=== PATIENT | male | born 1980 | race Caucasian/White ===

== ENCOUNTER 2018-01-06 14:02 | Inpatient (IN) | payer OTHER ==
[2018-01-06] MEDS ORDERED: Nicotine Inhaler* 10 MG AMP INH PRN (14:15)
[2018-01-06] MEDS ORDERED: Mouth Piece, Nicotine* 1 EACH CARTRIDGE INH PRN (14:15)
[2018-01-06 14:32] LABS: ABS Basophils 0 10^3/ul (0-0.2); ABS Eosinophils 0.1 10^3/ul (0-0.6); ABS Lymphocytes 1.5 10^3/ul (1.0-4.8); ABS Monocytes 0.7 10^3/ul (0-0.8); ABS Neutrophils 6.3 10^3/ul (1.5-7.7); ABS Nucleated RBC 0 10^3/ul; Hematocrit 43 % (42-52); Hemoglobin 14.6 g/dl (14.0-18.0); Lymphocyte % 17.2 % (25-47); Mean Corpuscular HGB Conc 34 g/dl (31-36); Mean Corpuscular Hemoglobin 30 pg (27-31); Mean Corpuscular Volume 87 fL (80-94); Nucleated Red Blood Cells % 0; Platelet Count 207 10^3/ul (150-450); Red Blood Count 4.92 10^6/ul (4.00-5.40); Red Cell Distribution Width 14 % (10.5-15); White Blood Count 8.6 10^3/ul (3.5-10.8)
--- NOTE | 2018-01-06 14:34 | ED ---
Psychiatric Complaint - HPI Summary HPI Summary: The patient is a 37 y/o M presenting to [facility] with a chief complaint of anxiety and depression attacks since being discharged from the [facility] three days ago. He had been admitted there for four days, but he thinks that he was released too soon. His medications were changed, which he thinks was not appropriate because he is now experiencing worsened episodes of depression. He also has been having left-sided abd pain currently rated 8/10 in severity, which may be due to his dx of ulcerative colitis, which he had to stop taking his medication for when he was admitted to [facility]. He is currently having SI, and he has body aches and sinus pressure. Current nicotine patch user, but was former smoker before being admitted. Nondrinker. - History Of Current Complaint Chief Complaint: EDMentalHealth Time Seen by Provider: 01/06/18 14:15 Hx Obtained From: Patient Onset/Duration: Gradual Onset, Lasting Days - last three days, Still Present Timing: Days Severity Initially: Mild Severity Currently: Moderate Character: Depressed, Anxious Aggravating Factor(s): Other - change in medications Alleviating Factor(s): Nothing Related History: Positive For: Prior Psychiatric Issues - anxiety, depression Has Suicidal: Reports: Thoughts - Allergies/Home Medications Allergies/Adverse Reactions: Allergies Allergy/AdvReac Type Severity Reaction Status Date / Time latex Allergy Rash Verified 01/06/18 15:00 Sulfa (Sulfonamide Allergy Rash Verified 01/06/18 15:00 Antibiotics) PMH/Surg Hx/FS Hx/Imm Hx Endocrine/Hematology History: Denies: Hx Diabetes Cardiovascular History: Denies: Hx Hypertension GI History: Reports: Other GI Disorders - ulcerative colitis Psychiatric History: Reports: Hx Anxiety, Hx Depression - Surgical History Surgery Procedure, Year, and Place: none Infectious Disease History: No Infectious Disease History: Denies: Traveled Outside the [place] in Last 30 Days - Family History Known Family History: Negative: Diabetes - Social History Alcohol Use: None Substance Use Type: Reports: None Smoking Status (MU): Former Smoker Review of Systems Positive: Other - body aches Positive: Other - sinus pressure Positive: Abdominal Pain - left side Positive: Anxious, Depressed, Other - SI All Other Systems Reviewed And Are Negative: Yes Physical Exam - Summary Physical Exam Summary: Appearance: Well appearing, no pain distress, depressed affect Skin: warm, dry, reflects adequate perfusion Head/face: normal Eyes: EOMI, ISABELA ENT: normal Neck: supple, non-tender Respiratory: CTA, breath sounds present Cardiovascular: RRR, pulses symmetrical Abdomen: non-tender, soft Bowel: present Musculoskeletal: normal, strength/ROM intact Neuro: normal, sensory motor intact, A&Ox3 Triage Information Reviewed: Yes Vital Signs On Initial Exam: Initial Vitals Temp Pulse Resp BP Pulse Ox 98.4 F 87 16 143/89 100 01/06/18 14:04 01/06/18 14:04 01/06/18 14:04 01/06/18 14:04 01/06/18 14:04 Vital Signs Reviewed: Yes Diagnostics - Vital Signs Vital Signs Temp Pulse Resp BP Pulse Ox 01/06/18 14:04 98.4 F 87 16 143/89 100 - Laboratory Result Diagrams: 01/06/18 14:19 01/06/18 14:19 Lab Statement: Any lab studies that have been ordered have been reviewed, and results considered in the medical decision making process. Course/Dx - Course Course Of Treatment: The patient is a 37 y/o M presenting to [facility] with a chief complaint of anxiety and depression episodes with associated SI for the last three days since being released from the [facility]. His medications were changed, and he was unable to have his ulcerative colitis medication, which may be causing his current abd pain. Upon exam, the patient has a depressed affect. In the ED course, the patient was given nicotine inhaler and mouth piece. Blood work and UA obtained. Al Short, mental health server support technician, accepts the patient for admission at [1715] with dx of unspecified depression. Patient understands the need for admission and agrees with this plan. - Differential Dx/Clinical Impression Differential Diagnosis/HQI/PQRI: Positive: Anxiety, Depression, Suicidal Ideation Provider Diagnosis: Depression, Suicidal ideation - Physician Notifications Discussed Care Of Patient With: Al Short - mental health server support technician Time Discussed With Above Provider: 17:15 Instructed by Provider To: Admit As Inpatient Discharge - Sign-Out/Discharge Documenting (check all that apply): Patient Departure - Patient will be admitted to [facility] for further care. - Discharge Plan Condition: Stable Disposition: ADMITTED TO [facility] Referrals: No Primary Care Phys,NOPCP [Primary Care Provider] - - Billing Disposition and Condition Condition: STABLE Disposition: Admitted to [facility] - Attestation Statements Document Initiated by Realibe: Yes Documenting Scribe: Radha Leone Provider For Whom Matt is Documenting (Include Credential): Dr. Alexi Butterfield MD Scribe Attestation: Radha Talamantes, scribed for Dr. Alexi Butterfield MD on 01/06/18 at 1731. Scribe Documentation Reviewed: Yes Provider Attestation: The documentation as recorded by the Radha coles accurately reflects the service I personally performed and the decisions made by me, Dr. Alexi Butterfield MD
[2018-01-06 14:52] LABS: Urine Appearance Clear; Urine Blood 1+ (Negative); Urine Color Straw; Urine Ketones Negative (Negative); Urine Protein Negative (Negative); Urine Red Blood Cell Trace(0-2/hpf) (Absent); Urine Specific Gravity 1.009 (1.010-1.030); Urine Urobilinogen Negative (Negative); Urine White Blood Cell Trace(0-5/hpf) (Absent)
[2018-01-06 14:58] LABS: EGFR Non-African American 79.5 (>60)
[2018-01-06] MEDS ORDERED: Acetaminophen TAB* 325 MG PO ONE ×2 (16:20→16:40)
[2018-01-06] MEDS ORDERED: Al Hydrox/Mg Hydrox/Simet LIQ* 30 ML UDC PO PRN (20:26)
[2018-01-06] MEDS ORDERED: [UNRECOGNIZED DRUG - OTHER] PO PRN (20:57)
[2018-01-06] MEDS ORDERED: QUEtiapine TAB* 100 MG PO SCH (21:00)
[2018-01-06] MEDS ORDERED: MUCINEX DM PO PRN (21:03)
[2018-01-06] MEDS: Amoxicillin/Clavulanate TAB* 875 MG PO SCH (22:08)
[2018-01-06] MEDS: busPIRone TAB* 15 MG PO SCH (22:08)
[2018-01-06] MEDS: Omeprazole CAP* 20 MG PO SCH (22:09)
[2018-01-06] MEDS: Montelukast Sodium TAB* 10 MG PO SCH (22:09)
[2018-01-06] MEDS: Acetaminophen TAB* 325 MG PO PRN (22:10)
[2018-01-06] MEDS: Ondansetron TAB* 4 MG PO PRN (22:11)
[2018-01-06] MEDS: hydrOXYzine HCL TAB* 50 MG PO PRN (22:11)
[2018-01-06] MEDS: Albuterol HFA INHALER* 8 gm MDI INH PRN (22:13)
[2018-01-06] MEDS: Triamcinolone 0.025% OINT * 15 GM TUBE TOPICAL SCH (22:14)
[2018-01-06] MEDS: Nicotine Patch Removal NOTE PATCH OFF SCH (22:17)
[2018-01-06] MEDS: Albuterol 2.5 MG/3 ML NEB.SOL* (0.083%) INH SCH (22:26)
[2018-01-07] MEDS ORDERED: FLUoxetine CAP* 20 MG ONE (06:16)
[2018-01-07] MEDS: busPIRone TAB* 15 MG PO SCH ×3 (07:05→20:50)
[2018-01-07] MEDS: FLUoxetine CAP* 20 MG PO SCH (07:05)
[2018-01-07] MEDS: Albuterol 2.5 MG/3 ML NEB.SOL* (0.083%) INH SCH ×3 (08:10→20:32)
[2018-01-07] MEDS: Nicotine PATCH 21 MG/24 HR* PATCH TRANSDERM SCH (08:21)
[2018-01-07] MEDS: Dicyclomine CAP* 10 MG PO SCH ×3 (08:22→16:33)
[2018-01-07] MEDS: Amoxicillin/Clavulanate TAB* 875 MG PO SCH ×2 (08:22→20:50)
[2018-01-07] MEDS: Omeprazole CAP* 20 MG PO SCH ×2 (08:23→20:52)
[2018-01-07] MEDS: Fluticasone NASAL SPRAY 50MCG* 16 gm SPRAY BTL BOTH NARES SCH (08:23)
[2018-01-07] MEDS: Triamcinolone 0.025% OINT * 15 GM TUBE TOPICAL SCH ×2 (08:23→20:55)
[2018-01-07] MEDS: Vitamin THERAPEUTIC TAB PO SCH (08:23)
[2018-01-07] MEDS: PTO:Mesalamine (NF) 0.375 GM CAP PO SCH (08:24)
[2018-01-07] MEDS: BUDESONIDE 3 MG PO SCH (08:24)
[2018-01-07] MEDS: hydrOXYzine HCL TAB* 50 MG PO PRN (08:28)
[2018-01-07] MEDS: Acetaminophen TAB* 325 MG PO PRN ×3 (10:16→20:53)
[2018-01-07] MEDS: Ondansetron TAB* 4 MG PO PRN (10:17)
[2018-01-07] MEDS: LORazepam TAB(*) 0.5 MG PO SCH ×3 (12:13→20:51)
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
[2018-01-07] MEDS: Montelukast Sodium TAB* 10 MG PO SCH (20:51)
[2018-01-07] MEDS: Albuterol HFA INHALER* 8 gm MDI INH PRN (20:56)
[2018-01-07] MEDS ORDERED: QUEtiapine TAB* 100 MG PO SCH (21:00)
[2018-01-07] MEDS ORDERED: Prazosin CAP* 1 MG PO SCH (21:00)
[2018-01-07] MEDS: Nicotine Patch Removal NOTE PATCH OFF SCH (23:05)
[2018-01-08] MEDS: hydrOXYzine HCL TAB* 50 MG PO PRN ×2 (01:48→12:00)
[2018-01-08] MEDS: Dicyclomine CAP* 10 MG PO SCH ×3 (07:58→17:18)
[2018-01-08] MEDS: Fluticasone NASAL SPRAY 50MCG* 16 gm SPRAY BTL BOTH NARES SCH (07:59)
[2018-01-08] MEDS: Omeprazole CAP* 20 MG PO SCH ×2 (07:59→20:43)
[2018-01-08] MEDS: FLUoxetine CAP* 20 MG PO SCH (07:59)
[2018-01-08] MEDS: BUDESONIDE 3 MG PO SCH (07:59)
[2018-01-08] MEDS: Triamcinolone 0.025% OINT * 15 GM TUBE TOPICAL SCH ×2 (07:59→20:43)
[2018-01-08] MEDS: Nicotine PATCH 21 MG/24 HR* PATCH TRANSDERM SCH (07:59)
[2018-01-08] MEDS: busPIRone TAB* 15 MG PO SCH ×3 (07:59→20:43)
[2018-01-08] MEDS: LORazepam TAB(*) 0.5 MG PO SCH ×3 (07:59→20:43)
[2018-01-08] MEDS: Acetaminophen TAB* 325 MG PO PRN ×2 (07:59→20:54)
[2018-01-08] MEDS: Vitamin THERAPEUTIC TAB PO SCH (07:59)
[2018-01-08] MEDS: PTO:Mesalamine (NF) 0.375 GM CAP PO SCH (07:59)
[2018-01-08] MEDS: Ondansetron TAB* 4 MG PO PRN ×2 (08:42→17:18)
[2018-01-08] MEDS: Albuterol 2.5 MG/3 ML NEB.SOL* (0.083%) INH SCH ×3 (09:34→20:34)
--- NOTE | 2018-01-08 11:46 | PN ---
Subjective - Subjective Date of Service: 01/08/18 Service Type: 95026 [facility] care 15 min low complexity Subjective: Patient was seen by self, discussed with treatment team, chart was reviewed. Patient has been compliant with his medications but reported no improvement in his sleep last night. Instead reported that he had worsening of his dream and had early, middle and late insomnia.. Patient reports that he slept with nicotine patch yesterday. no reported side effects. Patient reports minimal improvement in anxiety and depression but appears to be doing better than yesterday and more social and invested in attending groups and learning coping strategies to manage suicidal thoughts and distress. Patient eating has been fair. Patient has been cooperative with staff. Patient behavior has been in control. Patient has made multiple request if he an use candies from home and protein shakes that he use on a daily basis. to help dryness of mouth and help with his weight due to long standing IBS and Ulcerative Colitis compliants. Patient mood was less anxious and less dysphoric and reports improvement in suicidal thoughts. Patient has been reporting no homicidal ideation. No psychotic symptoms of delusions or hallucinations. Objective - Appearance Appearance: Healthy Appearing Dysmorphic Features: No Hygiene: Normal Grooming: Fairly Well Kept - Behavior Psychomotor Activities: Normal Exhibits Abnormal Movement: No - Attitude and Relatedness Attitude and Relatedness: Cooperative Eye Contact: Fair - Speech Quality: Unpressured Latencies: Normal Quantity: Appropriate - Mood Patient's Decription of Mood: "Anxious" - Affect Observed Affect: Tense - less - Thought Process Patient's Thought Process: Goal Directed, Circumstantial Thought Content: No Passive Wish, No Suicidal Planning, No Homicidal Ideation, No Paranoid Ideation - Sensorium Experiencing Hallucinations: No, Sensorium is Clear Type of Hallucinations: Visual: No, Auditory: No, Command: No - Level of Consciousness Level of Consciousness: Alert Orientation: Yes Intact, Yes Orientated to Time, Yes Orientated to Place, Yes Orientated to Person - Impulse Control Impulse Control: Intact - Insight and Judgement Insight and Judgement: Fair - Group Participation Particating in Group Activities: Yes - Medication Management Medication Management Adherence: Yes Assessment - Assessment Merits Inpatient Hospitalization: For Immediate Safety, For Stabilization, For Discharge Planning Inpatient DSM-V Dx: F33.9 Clinical Impression: Patient with history of IBS, Ulcerative Colitis, PTSD, Anxiety and Depression? ADHD-can be attention deficit secondary to primary diagnosis. Patient currently admitted due to worsening of depression, anxiety and suicidal thoughts with a plan. Patient has also struggled with psychosocial issues including financial, conflicts with partner and recent changes in medications. Patient is a danger to self and if discharged hence will be stabilized on inpatient unit with medication adjustments and therapy. MHU: Problem List - Patient Problems (1) Major depression Current Visit: Yes Status: Acute Code(s): F32.9 - MAJOR DEPRESSIVE DISORDER , SINGLE EPISODE, UNSPECIFIED SNOMED Code(s): 001093588 (2) Anxiety disorder, unspecified Current Visit: Yes Status: Acute Code(s): F41.9 - ANXIETY DISORDER, UNSPECIFIED SNOMED Code(s): 076412234 (3) PTSD (post-traumatic stress disorder) Current Visit: Yes Status: Acute Code(s): F43.10 - POST-TRAUMATIC STRESS DISORDER, UNSPECIFIED SNOMED Code(s): 79999424 Plan - Plan Treatment Plan: Name: ANN CHAUHAN Birthdate: 1980 [id number] - Patient continues to be hospitalized due to recent suicidal thoughts with plan , mood instability, anxiety and impulsivity. - Patient's medications were adjusted after informed consent with continuation of Buspar and Prozac. Patient Prazosin was discontinued at this time and Seroquel was increased to 150 mg at Bedtime to augment antidepressant and anti anxiety effect and aide sleep. Continue with other medical medications. -Patient was ordered to have his request of protein shake and candy, will also obtain nutrition consult for appropriate nutritional advice and recommendation. - Patient will be monitored for improvement and side effects. Risk and benefits were discussed. - Patient was encouraged to continue his participation in the milieu, group and individual therapy. Medications: Current Medications Acetaminophen (Tylenol Tab*) 650 mg PO Q4H PRN PRN Reason: PAIN or TEMP > 101 F Last Admin: 01/08/18 07:59 Dose: 650 mg Al Hydrox/Mg Hydrox/Simethicone (Maalox Plus*) 30 ml PO Q4H PRN PRN Reason: INDIGESTION Albuterol (Ventolin Hfa Inhaler*) 2 puff INH Q4H PRN PRN Reason: . Last Admin: 01/07/18 20:56 Dose: 2 puff Albuterol (Ventolin 2.5 Mg/3 Ml Neb.Ania*) 2.5 mg INH TID JIGAR Last Admin: 01/08/18 09:34 Dose: 2.5 mg Budesonide (Budesonide Cap(Nf)) 9 mg PO DAILY COUNTS INCLUDE 234 BEDS AT THE [facility] Last Admin: 01/08/18 07:59 Dose: 9 mg Buspirone HCl (Buspar Tab *) 15 mg PO TID COUNTS INCLUDE 234 BEDS AT THE [facility] Last Admin: 01/08/18 07:59 Dose: 15 mg Device (Nicotine Mouth Piece*) 1 each INH .USE WITH NICOTROL PRN PRN Reason: CRAVING Dicyclomine HCl (Bentyl Cap*) 20 mg PO TID [facility] Last Admin: 01/08/18 07:58 Dose: 20 mg Fluoxetine HCl (Prozac Cap*) 40 mg PO DAILY COUNTS INCLUDE 234 BEDS AT THE [facility] Last Admin: 01/08/18 07:59 Dose: 40 mg Fluticasone Propionate (Flonase Nasal Eagle 50mcg*) 1 spray BOTH NARES DAILY COUNTS INCLUDE 234 BEDS AT THE [facility] Last Admin: 01/08/18 07:59 Dose: 1 spray Hydroxyzine HCl (Atarax Tab*) 50 mg PO Q6H PRN PRN Reason: ANXIETY Last Admin: 01/08/18 01:48 Dose: 50 mg Lorazepam (Ativan Tab(*)) 0.5 mg PO TID COUNTS INCLUDE 234 BEDS AT THE [facility] Last Admin: 01/08/18 07:59 Dose: 0.5 mg Mesalamine (Apriso (Nf)) 1.5 gm PO DAILY COUNTS INCLUDE 234 BEDS AT THE [facility] Last Admin: 01/08/18 07:59 Dose: 1.5 gm Montelukast Sodium (Singulair Tab*) 10 mg PO BEDTIME COUNTS INCLUDE 234 BEDS AT THE [facility] Last Admin: 01/07/18 20:51 Dose: 10 mg Multivitamins (Theragran Tab*) 1 tab PO DAILY COUNTS INCLUDE 234 BEDS AT THE [facility] Last Admin: 01/08/18 07:59 Dose: 1 tab Nicotine (Nicotine Inhaler*) 10 mg INH Q2H PRN PRN Reason: CRAVING Nicotine (Nicotine Patch 21 Mg/24 Hr*) 1 patch TRANSDERM DAILY COUNTS INCLUDE 234 BEDS AT THE [facility] Last Admin: 01/08/18 07:59 Dose: 1 patch Nf:Bronkaid 1 dose PO Q4H PRN PRN Reason: . Nf: Mucinex Dm 1 dose PO Q12H PRN PRN Reason: FOR 10 DAYS Stop: 01/14/18 23:59 Omeprazole (Prilosec Cap*) 20 mg PO BID COUNTS INCLUDE 234 BEDS AT THE [facility] Last Admin: 01/08/18 07:59 Dose: 20 mg Ondansetron HCl (Zofran Tab*) 4 mg PO Q8H PRN PRN Reason: NAUSEA Last Admin: 01/08/18 08:42 Dose: 4 mg Pharmacy Profile Note (Nicotine Patch Removal Note*) 1 note PATCH OFF 2099 COUNTS INCLUDE 234 BEDS AT THE [facility] Last Admin: 01/07/18 23:05 Dose: Not Given Quetiapine Fumarate (Seroquel Tab*) 150 mg PO 2100 JIGAR Triamcinolone Acetonide (Triamcinolone 0.025% Oint *) 1 applic TOPICAL BID COUNTS INCLUDE 234 BEDS AT THE [facility] Last Admin: 01/08/18 07:59 Dose: 1 applic
[2018-01-08] MEDS: Montelukast Sodium TAB* 10 MG PO SCH (20:43)
[2018-01-08] MEDS: Nicotine Patch Removal NOTE PATCH OFF SCH (20:45)
[2018-01-08] MEDS: Albuterol HFA INHALER* 8 gm MDI INH PRN (20:46)
[2018-01-08] MEDS ORDERED: QUEtiapine TAB* 100 MG PO SCH (21:00)
[2018-01-09] MEDS: hydrOXYzine HCL TAB* 50 MG PO PRN (03:23)
[2018-01-09] MEDS: Fluticasone NASAL SPRAY 50MCG* 16 gm SPRAY BTL BOTH NARES SCH (08:18)
[2018-01-09] MEDS: Nicotine PATCH 21 MG/24 HR* PATCH TRANSDERM SCH (08:18)
[2018-01-09] MEDS: FLUoxetine CAP* 20 MG PO SCH (08:19)
[2018-01-09] MEDS: busPIRone TAB* 15 MG PO SCH ×2 (08:19→13:52)
[2018-01-09] MEDS: BUDESONIDE 3 MG PO SCH (08:19)
[2018-01-09] MEDS: Dicyclomine CAP* 10 MG PO SCH ×3 (08:19→16:44)
[2018-01-09] MEDS: Omeprazole CAP* 20 MG PO SCH (08:19)
[2018-01-09] MEDS: Vitamin THERAPEUTIC TAB PO SCH (08:19)
[2018-01-09] MEDS: LORazepam TAB(*) 0.5 MG PO SCH ×2 (08:19→13:53)
[2018-01-09] MEDS: PTO:Mesalamine (NF) 0.375 GM CAP PO SCH (08:20)
[2018-01-09] MEDS: Triamcinolone 0.025% OINT * 15 GM TUBE TOPICAL SCH (08:23)
[2018-01-09] MEDS: Albuterol 2.5 MG/3 ML NEB.SOL* (0.083%) INH SCH ×3 (08:32→20:20)
[2018-01-09] MEDS: Acetaminophen TAB* 325 MG PO PRN ×2 (09:53→16:43)
[2018-01-09] MEDS: Ondansetron TAB* 4 MG PO PRN (09:53)
--- NOTE | 2018-01-09 11:31 | PN ---
MHU: Group Therapy Note - Service Type Service Type: 16149 Group Psychotherapy - Cognitive Behavioral Group Therapy ( CBT):Patient was attentive and participatory in CBT programming this morning, and remained in good behavioral control. Patient expressed positive insights regarding relevant treatment interventions and goals.
--- NOTE | 2018-01-09 14:48 | PN ---
Subjective - Subjective Date of Service: 01/09/18 Service Type: [id number] [facility] care 15 min low complexity Subjective: Patient was seen by self, discussed with treatment team, chart was reviewed. Patient has been compliant with his medications. Patient reported some improvement in his depression and anxiety. Patient reports that he took out nicotine patch last night before going to bed. Patient reports that he continued to have difficulty with insomnia. Patient also reported nightmares and inability to fall back in to sleep. Patient had to take Hydroxyzine with some benefits. Patient continues to work on his distress and negative cognitive thinking with coping strategies. Patient is attending groups and feels that it has been helpful. Patient reports that his goal for today is to not complain and have been doing good with that and appreciating help that he is getting at the hospital. Patient eating has been fair. Patient has been cooperative with staff. Patient behavior has been in control. Patient has been reporting no suicidal or homicidal ideation. No psychotic symptoms of delusions or hallucinations. Patient do report generalized discomfort in abdomen and reports mucous and bloody diarrhea due to his chronic Ulcerative colitis and IBS. Objective - Appearance Appearance: Healthy Appearing Dysmorphic Features: No Hygiene: Normal Grooming: Fairly Well Kept - Behavior Psychomotor Activities: Normal Exhibits Abnormal Movement: No - Attitude and Relatedness Attitude and Relatedness: Cooperative Eye Contact: Fair - Speech Quality: Unpressured Latencies: Normal Quantity: Appropriate - Mood Patient's Decription of Mood: "better" - Affect Observed Affect: Tense - less Affect Consistent with: Dysphoria - less - Thought Process Patient's Thought Process: Coherent, Circumstantial Thought Content: No Passive Wish, No Suicidal Planning, No Homicidal Ideation, No Paranoid Ideation - Sensorium Experiencing Hallucinations: No, Sensorium is Clear Type of Hallucinations: Visual: No, Auditory: No, Command: No - Level of Consciousness Level of Consciousness: Alert Orientation: Yes Intact, Yes Orientated to Time, Yes Orientated to Place, Yes Orientated to Person - Impulse Control Impulse Control: Intact - Insight and Judgement Insight and Judgement: Fair - Group Participation Particating in Group Activities: Yes - Medication Management Medication Management Adherence: Yes Assessment - Assessment Merits Inpatient Hospitalization: For Immediate Safety, For Stabilization, For Discharge Planning Inpatient DSM-V Dx: F33.9 Clinical Impression: Patient with history of IBS, Ulcerative Colitis, PTSD, Anxiety and Depression? ADHD-can be attention deficit secondary to primary diagnosis. Patient currently admitted due to worsening of depression, anxiety and suicidal thoughts with a plan. Patient has also struggled with psychosocial issues including financial, conflicts with partner and recent changes in medications. Patient is a danger to self and if discharged hence will be stabilized on inpatient unit with medication adjustments and therapy. MHU: Problem List - Patient Problems (1) Major depression Current Visit: Yes Status: Acute Code(s): F32.9 - MAJOR DEPRESSIVE DISORDER , SINGLE EPISODE, UNSPECIFIED SNOMED Code(s): 379471066 (2) Anxiety disorder, unspecified Current Visit: Yes Status: Acute Code(s): F41.9 - ANXIETY DISORDER, UNSPECIFIED SNOMED Code(s): 446632382 (3) PTSD (post-traumatic stress disorder) Current Visit: Yes Status: Acute Code(s): F43.10 - POST-TRAUMATIC STRESS DISORDER, UNSPECIFIED SNOMED Code(s): 46850219 Plan - Plan Treatment Plan: Name: ANN CHAUHAN Birthdate: 1980 [id number] - Patient continues to be hospitalized due to recent suicidal thoughts with plan , mood instability, anxiety and impulsivity. - Patient's medications were adjusted after informed consent with continuation of Buspar and Prozac. Patient Seroquel was increased to 200 mg at Bedtime to augment antidepressant and anti anxiety effect and aide sleep. Ativan was changed to prn. Continue with other medical medications. -Called Hospitalist for a consult regarding patient's GI complaint. - Patient will be monitored for improvement and side effects. Risk and benefits were discussed. - Patient was encouraged to continue his participation in the milieu, group and individual therapy. Medications: Current Medications Acetaminophen (Tylenol Tab*) 650 mg PO Q4H PRN PRN Reason: PAIN or TEMP > 101 F Last Admin: 01/09/18 09:53 Dose: 650 mg Al Hydrox/Mg Hydrox/Simethicone (Maalox Plus*) 30 ml PO Q4H PRN PRN Reason: INDIGESTION Albuterol (Ventolin Hfa Inhaler*) 2 puff INH Q4H PRN PRN Reason: . Last Admin: 01/08/18 20:46 Dose: 2 puff Albuterol (Ventolin 2.5 Mg/3 Ml Neb.Ania*) 2.5 mg INH TID JIGAR Last Admin: 01/09/18 14:21 Dose: 2.5 mg Budesonide (Budesonide Cap(Nf)) 9 mg PO DAILY [facility] Last Admin: 01/09/18 08:19 Dose: 9 mg Buspirone HCl (Buspar Tab *) 15 mg PO TID [facility] Last Admin: 01/09/18 13:52 Dose: 15 mg Device (Nicotine Mouth Piece*) 1 each INH .USE WITH NICOTROL PRN PRN Reason: CRAVING Dicyclomine HCl (Bentyl Cap*) 20 mg PO TID AC [facility] Last Admin: 01/09/18 11:54 Dose: 20 mg Fluoxetine HCl (Prozac Cap*) 40 mg PO DAILY [facility] Last Admin: 01/09/18 08:19 Dose: 40 mg Fluticasone Propionate (Flonase Nasal [place] 50mcg*) 1 spray BOTH NARES DAILY [facility] Last Admin: 01/09/18 08:18 Dose: 1 spray Hydroxyzine HCl (Atarax Tab*) 50 mg PO Q6H PRN PRN Reason: ANXIETY Last Admin: 01/09/18 03:23 Dose: 50 mg Lorazepam (Ativan Tab(*)) 0.5 mg PO TID PRN PRN Reason: ANXIETY Mesalamine (Apriso (Nf)) 1.5 gm PO DAILY [facility] Last Admin: 01/09/18 08:20 Dose: 1.5 gm Montelukast Sodium (Singulair Tab*) 10 mg PO BEDTIME [facility] Last Admin: 01/08/18 20:43 Dose: 10 mg Multivitamins (Theragran Tab*) 1 tab PO DAILY [facility] Last Admin: 01/09/18 08:19 Dose: 1 tab Nicotine (Nicotine Inhaler*) 10 mg INH Q2H PRN PRN Reason: CRAVING Nicotine (Nicotine Patch 21 Mg/24 Hr*) 1 patch TRANSDERM DAILY [facility] Last Admin: 01/09/18 08:18 Dose: 1 patch Nf:Bronkaid 1 dose PO Q4H PRN PRN Reason: . Nf: Mucinex Dm 1 dose PO Q12H PRN PRN Reason: FOR 10 DAYS Stop: 01/14/18 23:59 Omeprazole (Prilosec Cap*) 20 mg PO BID [facility] Last Admin: 01/09/18 08:19 Dose: 20 mg Ondansetron HCl (Zofran Tab*) 4 mg PO Q8H PRN PRN Reason: NAUSEA Last Admin: 01/09/18 09:53 Dose: 4 mg Pharmacy Profile Note (Nicotine Patch Removal Note*) 1 note PATCH OFF 2099 [facility] Last Admin: 01/08/18 20:45 Dose: 1 note Quetiapine Fumarate (Seroquel Tab*) 200 mg PO 2100 [facility] Triamcinolone Acetonide (Triamcinolone 0.025% Oint *) 1 applic TOPICAL BID [facility] Last Admin: 01/09/18 08:23 Dose: Not Given
--- NOTE | 2018-01-09 16:09 | PN ---
MHU: Group Therapy Note - Service Type Service Type: [id number] Group Psychotherapy - Group Participation Patient Participating in Group: Yes Level of Group Participation: Attentive, Spontaneously Participate Relatedness to Group: Well Related - Hossein was very participatory and appreciative of the information offered. He was pleasant and attentive.
[2018-01-09] MEDS: LORazepam TAB(*) 0.5 MG PO PRN ×2 (16:45→22:31)
[2018-01-09] MEDS: Nicotine Patch Removal NOTE PATCH OFF SCH (22:28)
[2018-01-10] MEDS ORDERED: Iohexol 300* (CONTRAST) 10 ML SDV IV ONE (00:28)
[2018-01-10] MEDS: busPIRone TAB* 15 MG PO SCH ×4 (00:45→21:14)
[2018-01-10] MEDS: QUEtiapine TAB* 100 MG PO SCH ×2 (00:45→21:14)
[2018-01-10] MEDS: Omeprazole CAP* 20 MG PO SCH ×3 (00:45→21:14)
[2018-01-10] MEDS: Montelukast Sodium TAB* 10 MG PO SCH ×2 (00:45→21:14)
[2018-01-10] MEDS: Triamcinolone 0.025% OINT * 15 GM TUBE TOPICAL SCH ×3 (00:46→21:11)
[2018-01-10] MEDS: Acetaminophen TAB* 325 MG PO PRN ×4 (00:47→22:41)
--- NOTE | 2018-01-10 01:30 | RAD ---
EXAM: CT Abdomen and Pelvis With Intravenous Contrast EXAM DATE/TIME: 01/10/2018 12:33 AM CLINICAL HISTORY: 37 years old, male; Pain; Abdominal pain; Generalized; Prior surgery; Surgery date: 6+ months; Surgery type: RT inguinal hernia repair w/ mesh; Additional info: Abd pain, diarrhea, HX of uc TECHNIQUE: Axial computed tomography images of the abdomen and pelvis with intravenous contrast. All CT scans at this facility use at least one of these dose optimization techniques: automated exposure control; mA and/or kV adjustment per patient size (includes targeted exams where dose is matched to clinical indication); or iterative reconstruction. Coronal and sagittal reformatted images were created and reviewed. CONTRAST: 79 ml of OMNI 300 administered intravenously. COMPARISON: No relevant prior studies available. FINDINGS: Lower thorax: There is a 3 mm nodule in the right lower lobe on axial image #2, series 2. ABDOMEN: Liver: The liver is enlarged measuring 20.5 cm in length. Gallbladder and bile ducts: Normal. No calcified stones. No ductal dilation. Pancreas: Normal. No ductal dilation. Spleen: The spleen is enlarged measuring 15 cm in length. Adrenals: Normal. No mass. Kidneys and ureters: Normal. No hydronephrosis. Stomach and bowel: Normal. No obstruction. No mucosal thickening. Appendix: No evidence of appendicitis. PELVIS: Bladder: The bladder is not distended and evaluation is limited but no gross bladder pathology is identified. Reproductive: Unremarkable as visualized. ABDOMEN and PELVIS: Intraperitoneal space: Normal. No free air. No significant fluid collection. Bones/joints: No acute fracture. No dislocation. Soft tissues: Minimal soft tissue changes are seen in the right groin area from previous inguinal hernia repair surgery. Vasculature: The splenic vein is prominent in size. Lymph nodes: Normal. No enlarged lymph nodes. IMPRESSION: 1. Hepatosplenomegaly. 2. Prominent splenic vein, raising the possibility of portal hypertension. 3. Right lower lobe pulmonary nodule. To contact [facility] with a general question: [facility] - [phone] For direct physician to physician contact: Physician Hotline - [phone] [facility] ([facility] Facility ID #[id number])
--- NOTE | 2018-01-10 03:35 | CONS ---
HOSPITAL MEDICINE CONSULTATION: DATE OF CONSULT: 01/09/18 PRIMARY CARE PROVIDER: None. REQUESTING PHYSICIAN IN CONSULT: Dr. Cam Diaz. ATTENDING PHYSICIAN: Dr. Chaya Garces (dictated by Miriam Olmedo NP). REASON FOR CONSULT: Abdominal pain and diarrhea. HISTORY OF PRESENT ILLNESS: I will refer you to Dr. Diaz's history and physical from 01/07/18 for complete details, but in short, Mr. Herman is a 37- year-old male with past medical history of ulcerative colitis, IBS, PTSD, anxiety, depression, who was admitted to the behavioral services unit for suicidal ideations. The patient notes that previous to being hospitalized here , he was hospitalized at [facility] in the mental health unit. He was not aware at that time, though at discharge he was made aware that his ulcerative colitis medications had been held throughout his hospitalization. He is not sure exactly how long he has been off his medications, though he believes it has been up to 3 weeks. He has been back on his medications while here at [facility], though he has had significant abdominal pain and diarrhea , which have gotten much worse in the last 5 days. He reports abdominal pain, which wraps around to his back. He describes the pain as sharp and constant. He has diarrhea, which consists of blood and mucus. He does have nausea and occasional emesis. He reports that he has had an episode before of fecal retention and this feels similar. He reports his last UC flare was over a year ago. He has had no significant issues since then. He has had a poor appetite associated with this pain and has been trying to eat 6 small meals per day mostly clear and full liquids. He does see a bailiff at [place] and has yearly colonoscopies. He believes his next colonoscopy will be in January or February. PAST MEDICAL HISTORY: 1. Ulcerative colitis. 2. IBS. 3. PTSD. 4. Anxiety. 5. Depression. PAST SURGICAL HISTORY: None. HOME MEDICATIONS: I do not have a complete list of home medications, though based on his account, he is taking for his ulcerative colitis: 1. Dicyclomine 20 mg p.o. t.i.d. 2. Mesalamine 1.5 g p.o. daily. 3. Pantoprazole 40 mg p.o. daily. I will defer to the psychiatrist's H and P for his psychiatric medications. ALLERGIES: LATEX and SULFA. FAMILY HISTORY: Significant for IBS. He reports his mom and his sister both have IBS. SOCIAL HISTORY: He has a 16-pack year smoking history. He quit approximately 1 - 1/2 weeks ago. Denies recreational drug use. Reports very occasional alcohol use. REVIEW OF SYSTEMS: An 11-point review of systems was performed and all the pertinent positive and negative findings are in the HPI. All other systems are negative. PHYSICAL EXAM: General: Mr. Herman is a well-developed, well-nourished, middle - aged male, sitting in bed, in no acute distress. He appears his stated age. Vital Signs: Temp 98.5, heart rate 80, respiratory rate 16, oxygen saturation 97% on room air, blood pressure 131/83. HEENT: Head is atraumatic, normocephalic. Visual eldridge are grossly intact. Oral mucous membranes are moist and without lesions. Respiratory: Symmetrical chest expansion. No chest wall deformities. Lungs: Clear to auscultation throughout. No rhonchi, wheezes, or rales. Cardiovascular: Regular rate and rhythm. S1, S2 present. No murmurs, rubs, or gallops. No JVD. Musculoskeletal: Full range of motion. No pain or deformities. Abdomen: Soft, significantly tender to palpation throughout, nondistended. Bowel sounds are normoactive throughout. No bruits appreciated. No hepatosplenomegaly. Neuro: Awake, alert, and oriented x4. Moves all extremities. Steady gait with no impairment. Skin: Grossly intact without lesions. LABORATORY DATA: Labs from 01/06/18 show WBC 18.6, RBC 4.92, hemoglobin 14.6, hematocrit 43, platelets 207. Sodium 142, potassium 4.0, chloride 105, carbon dioxide 29, BUN 14, creatinine 1.06, glucose 98. Urinalysis unremarkable. Urine toxicology positive for amphetamines. ASSESSMENT AND PLAN: Mr. Herman is a 37-year-old male with past medical history of ulcerative colitis, irritable bowel syndrome, posttraumatic stress disorder, depression and anxiety, who has been a patient of the mental health unit here at [facility] since 01/07/18 and has had significant abdominal pain and diarrhea since admission. The hospitalist service has been asked to consult and recommendations are as follows: 1. Ulcerative colitis and irritable bowel syndrome. The patient's symptoms are likely due in part to being off his medications for a significant period of time. It is really unclear how long he was off his medications, though this is certainly a cause for this current exacerbation. He should continue his dicyclomine, mesalamine, and omeprazole. We have ordered a CBC, BMP, CRP, and ESR. I have ordered a CT of the abdomen and pelvis with IV contrast. Ideally, we would also have oral contrast, though the patient does not think he will tolerate that. I do not think that he is currently infected as he does not have a temperature, he did not have an elevated white count on his last labs, and his vital signs have been stable. Further management will be determined after the CT scan is obtained. 2. Posttraumatic stress disorder, anxiety, and depression. Continue per Psychiatry. 3. Code status. The patient is a full code. TIME SPENT: Approximately 45 minutes was spent on this consultation, greater than half of that time spent with the patient obtaining my history, performing my physical exam, and reviewing the plan of care. This case has been reviewed with my attending, Dr. Garces, who is in agreement with the plan of care. MIRIAM OLMEDO NP [id number]/[facility] #: [id number] CRISTEL
[2018-01-10] MEDS: hydrOXYzine HCL TAB* 50 MG PO PRN ×2 (06:17→11:55)
[2018-01-10] MEDS: PTO:Mesalamine (NF) 0.375 GM CAP PO SCH (08:01)
[2018-01-10] MEDS: Dicyclomine CAP* 10 MG PO SCH ×4 (08:01→21:12)
[2018-01-10] MEDS: BUDESONIDE 3 MG PO SCH (08:01)
[2018-01-10] MEDS: Vitamin THERAPEUTIC TAB PO SCH (08:01)
[2018-01-10] MEDS: FLUoxetine CAP* 20 MG PO SCH (08:01)
[2018-01-10] MEDS: Fluticasone NASAL SPRAY 50MCG* 16 gm SPRAY BTL BOTH NARES SCH (08:02)
[2018-01-10] MEDS: Nicotine PATCH 21 MG/24 HR* PATCH TRANSDERM SCH (08:04)
[2018-01-10] MEDS: Albuterol HFA INHALER* 8 gm MDI INH PRN (08:04)
[2018-01-10 08:29] LABS: EGFR Non-African American 97.3 (>60)
[2018-01-10 08:31] LABS: INR 0.94 (0.77-1.02)
[2018-01-10 08:44] LABS: ABS Basophils 0 10^3/ul (0-0.2); ABS Eosinophils 0.2 10^3/ul (0-0.6); ABS Lymphocytes 2.7 10^3/ul (1.0-4.8); ABS Monocytes 0.6 10^3/ul (0-0.8); ABS Neutrophils 1.9 10^3/ul (1.5-7.7); ABS Nucleated RBC 0 10^3/ul; Eosinophil % 3.4 % (0-6); Hematocrit 39 % (42-52); Hemoglobin 13.4 g/dl (14.0-18.0); Lymphocyte % 50.2 % (25-47); Mean Corpuscular HGB Conc 35 g/dl (31-36); Mean Corpuscular Hemoglobin 30 pg (27-31); Mean Corpuscular Volume 86 fL (80-94); Mean Platelet Volume 7.9 um3 (7.4-10.4); Nucleated Red Blood Cells % 0.1; Platelet Count 194 10^3/ul (150-450); Red Cell Distribution Width 14 % (10.5-15); White Blood Count 5.4 10^3/ul (3.5-10.8)
[2018-01-10] MEDS: Ondansetron TAB* 4 MG PO PRN (09:24)
[2018-01-10] MEDS: LORazepam TAB(*) 0.5 MG PO PRN ×3 (09:26→22:41)
[2018-01-10] MEDS: Albuterol 2.5 MG/3 ML NEB.SOL* (0.083%) INH SCH (10:00)
--- NOTE | 2018-01-10 14:01 | PN ---
Subjective Date of Service: 01/10/18 Interval History: Patient has persistent cramping abdominal pain wrapping around to patient's back. Patient states that he usually has abdominal pain/IBS symptoms that manifest with stress. Patient continues to have frequent bloody diarrhea and nausea which improves slightly with zofran. Patient has mild improvement in pain with benytl and tylenol but still has significant pain. Patient denies F/C , CP, SOB, dizziness, palpitations, or other pain. Family History: Unchanged from Admission Social History: Unchanged from Admission Past Medical History: Unchanged from Admission Objective Active Medications: Acetaminophen (Tylenol Tab*) 650 mg PO Q4H PRN PRN Reason: PAIN or TEMP > 101 F Last Admin: 01/10/18 09:24 Dose: 650 mg Al Hydrox/Mg Hydrox/Simethicone (Maalox Plus*) 30 ml PO Q4H PRN PRN Reason: INDIGESTION Albuterol (Ventolin Hfa Inhaler*) 2 puff INH Q4H PRN PRN Reason: . Last Admin: 01/10/18 08:04 Dose: 2 puff Budesonide (Budesonide Cap(Nf)) 9 mg PO DAILY [facility] Last Admin: 01/10/18 08:01 Dose: 9 mg Buspirone HCl (Buspar Tab *) 15 mg PO TID [facility] Last Admin: 01/10/18 08:01 Dose: 15 mg Device (Nicotine Mouth Piece*) 1 each INH .USE WITH NICOTROL PRN PRN Reason: CRAVING Dicyclomine HCl (Bentyl Cap*) 40 mg PO ACHS [facility] Fluoxetine HCl (Prozac Cap*) 40 mg PO DAILY [facility] Last Admin: 01/10/18 08:01 Dose: 40 mg Fluticasone Propionate (Flonase Nasal [place] 50mcg*) 1 spray BOTH NARES DAILY [facility] Last Admin: 01/10/18 08:02 Dose: 1 spray Hydroxyzine HCl (Atarax Tab*) 50 mg PO Q6H PRN PRN Reason: ANXIETY Last Admin: 01/10/18 11:55 Dose: 50 mg Lorazepam (Ativan Tab(*)) 0.5 mg PO TID PRN PRN Reason: ANXIETY Last Admin: 01/10/18 09:26 Dose: 0.5 mg Mesalamine (Pentasa(Nf)) 1,000 mg PO QID [facility]; Protocol Montelukast Sodium (Singulair Tab*) 10 mg PO BEDTIME [facility] Last Admin: 01/10/18 00:45 Dose: 10 mg Multivitamins (Theragran Tab*) 1 tab PO DAILY [facility] Last Admin: 01/10/18 08:01 Dose: 1 tab Nicotine (Nicotine Inhaler*) 10 mg INH Q2H PRN PRN Reason: CRAVING Nicotine (Nicotine Patch 21 Mg/24 Hr*) 1 patch TRANSDERM DAILY [facility] Last Admin: 01/10/18 08:04 Dose: 1 patch Nf:Bronkaid 1 dose PO Q4H PRN PRN Reason: . Nf: Mucinex Dm 1 dose PO Q12H PRN PRN Reason: FOR 10 DAYS Stop: 01/14/18 23:59 Omeprazole (Prilosec Cap*) 20 mg PO BID [facility] Last Admin: 01/10/18 08:01 Dose: 20 mg Ondansetron HCl (Zofran Odt Tab*) 4 mg SL Q8H PRN PRN Reason: NAUSEA/VOMITING Pharmacy Profile Note (Nicotine Patch Removal Note*) 1 note PATCH OFF 2099 [facility] Last Admin: 01/09/18 22:28 Dose: 1 note Quetiapine Fumarate (Seroquel Tab*) 200 mg PO 2100 [facility] Last Admin: 01/10/18 00:45 Dose: 200 mg Triamcinolone Acetonide (Triamcinolone 0.025% Oint *) 1 applic TOPICAL BID [facility] Last Admin: 01/10/18 08:56 Dose: Not Given Vital Signs - 8 hr 01/10/18 01/10/18 01/10/18 07:44 08:01 09:26 Temperature 98.2 F Pulse Rate 98 Respiratory 16 16 17 Rate Blood Pressure 131/83 (mmHg) O2 Sat by Pulse 100 Oximetry 01/10/18 01/10/18 01/10/18 10:32 11:25 11:48 Temperature Pulse Rate Respiratory 16 16 16 Rate Blood Pressure (mmHg) O2 Sat by Pulse Oximetry 01/10/18 11:51 Temperature Pulse Rate Respiratory 16 Rate Blood Pressure (mmHg) O2 Sat by Pulse Oximetry Oxygen Devices in Use Now: None Appearance: Patient is a 37yo male who appears stated age and is sitting in the bed in [facility]. Eyes: No Scleral Icterus, PERRLA Ears/Nose/Mouth/Throat: NL Teeth, Lips, Gums, Clear Oropharnyx, Mucous Membranes Moist Neck: NL Appearance and Movements; NL JVP, Trachea Midline Respiratory: Symmetrical Chest Expansion and Respiratory Effort, Clear to Auscultation Cardiovascular: NL Sounds; No Murmurs; No JVD, RRR, No Edema Abdominal: - - Normoactive bowel sounds, diffuse tenderness without rebound, guarding. Negative Ibarra's sign. Lymphatic: No Cervical Adenopathy Extremities: No Edema, No Clubbing, Cyanosis Skin: No Rash or Ulcers, No Nodules or Sclerosis Neurological: Alert and Oriented x 3, NL Sensation, NL Muscle Strength and Tone , - - CN II-XII intact. Result Diagrams: 01/10/18 07:37 01/10/18 07:42 Microbiology and Other Data: Microbiology 01/06/18 14:27 Urine Culture - Final Urine No Growth (<1,000 CFU/mL) Assess/Plan/Problems-Billing Assessment: Patient is a 37yo male with a PMH for UC, IBS, PTSD and Depression/anxiety who is admitted for inpatient psychiatric treatment and is having a UC flare. - Patient Problems (1) Ulcerative colitis Current Visit: Yes Status: Acute Code(s): K51.90 - ULCERATIVE COLITIS, UNSPECIFIED, WITHOUT COMPLICATIONS SNOMED Code(s): 99855042 Comment: - Moderate UC Flare. - Patient has a history of "Fecal retention" which there was no sign of on CT abdomen - Will attempt to get records from outpatient [facility]. - H/H stable. Increase Mesalamine to treatment dose from maintenance dose and continue with Budesonide. Consider enema treatment if no improvement. - Tylenol and Bentyl for pain control, avoid opiates if possible. Bentyl dose increased. (2) IBS (irritable bowel syndrome) Current Visit: Yes Status: Acute Comment: - Contributing to abdominal pain and cramping - Worse with psychiatric concerns. - Continue Bentyl. (3) PTSD (post-traumatic stress disorder) Current Visit: Yes Status: Acute Code(s): F43.10 - POST-TRAUMATIC STRESS DISORDER, UNSPECIFIED SNOMED Code(s): 68155909 Comment: - Management per psychiatry (4) Full code status Current Visit: Yes Status: Acute Code(s): Z78.9 - OTHER SPECIFIED HEALTH STATUS SNOMED Code(s): 117724545 Status and Disposition: Inpatient Psych
--- NOTE | 2018-01-10 15:02 | PN ---
Subjective - Subjective Date of Service: 01/10/18 Service Type: [id number] Hosp care 25 min moderate complexity Subjective: Patient was seen by self, discussed with treatment team, chart was reviewed. Patient has been compliant with his medications. Patient reports it was a difficult time yesterday to notice any improvement as he was struggling with his medical complaints. Patient got a CT Scan and results were reviewed by hat stock laminating machine operator/hospitalist and continues to follow up on the case, will review recommendations. Patient had to take Hydroxyzine with some benefits last nigth as well as he had to go later at night for CT Scan. Patient continues to work on his distress and negative cognitive thinking with coping strategies and attending groups. Patient is feels that it has been helpful. Patient eating has been fair. Patient has been cooperative with staff. Patient behavior has been in control. Patient has been reporting no suicidal or homicidal ideation. No psychotic symptoms of delusions or hallucinations. Patient's records were reviewed from his previous hospitalization at [facility]. Objective - Appearance Appearance: Thin Framed Dysmorphic Features: No Hygiene: Normal Grooming: Fairly Well Kept - Behavior Psychomotor Activities: Normal Exhibits Abnormal Movement: No - Attitude and Relatedness Attitude and Relatedness: Cooperative Eye Contact: Fair - Speech Quality: Unpressured Latencies: Normal Quantity: Appropriate - Mood Patient's Decription of Mood: "Anxious" - Affect Observed Affect: Tense Affect Consistent with: Dysphoria - Thought Process Patient's Thought Process: Goal Directed Thought Content: No Passive Wish, No Suicidal Planning, No Homicidal Ideation, No Paranoid Ideation - Sensorium Experiencing Hallucinations: No, Sensorium is Clear Type of Hallucinations: Visual: No, Auditory: No, Command: No - Level of Consciousness Level of Consciousness: Alert Orientation: Yes Intact, Yes Orientated to Time, Yes Orientated to Place, Yes Orientated to Person - Impulse Control Impulse Control: Intact - Insight and Judgement Insight and Judgement: Fair - Group Participation Particating in Group Activities: Yes - Medication Management Medication Management Adherence: Yes Assessment - Assessment Merits Inpatient Hospitalization: For Immediate Safety, For Stabilization, For Discharge Planning Inpatient DSM-V Dx: F33.9 Clinical Impression: Patient with history of IBS, Ulcerative Colitis, PTSD, Anxiety and Depression? ADHD-can be attention deficit secondary to primary diagnosis. Patient currently admitted due to worsening of depression, anxiety and suicidal thoughts with a plan. Patient has also struggled with psychosocial issues including financial, conflicts with partner and recent changes in medications. Patient is a danger to self and if discharged hence will be stabilized on inpatient unit with medication adjustments and therapy. MHU: Problem List - Patient Problems (1) Major depression Current Visit: Yes Status: Acute Code(s): F32.9 - MAJOR DEPRESSIVE DISORDER , SINGLE EPISODE, UNSPECIFIED SNOMED Code(s): 848800311 (2) Anxiety disorder, unspecified Current Visit: Yes Status: Acute Code(s): F41.9 - ANXIETY DISORDER, UNSPECIFIED SNOMED Code(s): 802901850 (3) PTSD (post-traumatic stress disorder) Current Visit: Yes Status: Acute Code(s): F43.10 - POST-TRAUMATIC STRESS DISORDER, UNSPECIFIED SNOMED Code(s): 92237996 Comment: - Management per psychiatry Plan - Plan Treatment Plan: Name: ANN CHAUHAN Birthdate: 1980 [id number] - Patient continues to be hospitalized due to recent suicidal thoughts with plan , mood instability, anxiety and impulsivity. - Patient's medications were adjusted after informed consent with continuation of Buspar and Prozac. Patient Seroquel was continued at 200 mg at Bedtime to augment antidepressant and anti anxiety effect and aide sleep. Ativan as prn for anxiety. Continue with other medical medications. -Will f/u with recommendations from Hospitalist recommendations. - Patient will be monitored for improvement and side effects. Risk and benefits were discussed. - Patient was encouraged to continue his participation in the milieu, group and individual therapy. Medications: Current Medications Acetaminophen (Tylenol Tab*) 650 mg PO Q4H PRN PRN Reason: PAIN or TEMP > 101 F Last Admin: 01/10/18 09:24 Dose: 650 mg Al Hydrox/Mg Hydrox/Simethicone (Maalox Plus*) 30 ml PO Q4H PRN PRN Reason: INDIGESTION Albuterol (Ventolin Hfa Inhaler*) 2 puff INH Q4H PRN PRN Reason: . Last Admin: 01/10/18 08:04 Dose: 2 puff Budesonide (Budesonide Cap(Nf)) 9 mg PO DAILY [facility] Last Admin: 01/10/18 08:01 Dose: 9 mg Buspirone HCl (Buspar Tab *) 15 mg PO TID [facility] Last Admin: 01/10/18 08:01 Dose: 15 mg Device (Nicotine Mouth Piece*) 1 each INH .USE WITH NICOTROL PRN PRN Reason: CRAVING Dicyclomine HCl (Bentyl Cap*) 40 mg PO ACHS [facility] Fluoxetine HCl (Prozac Cap*) 40 mg PO DAILY [facility] Last Admin: 01/10/18 08:01 Dose: 40 mg Fluticasone Propionate (Flonase Nasal [place] 50mcg*) 1 spray BOTH NARES DAILY [facility] Last Admin: 01/10/18 08:02 Dose: 1 spray Hydroxyzine HCl (Atarax Tab*) 50 mg PO Q6H PRN PRN Reason: ANXIETY Last Admin: 01/10/18 11:55 Dose: 50 mg Lorazepam (Ativan Tab(*)) 0.5 mg PO TID PRN PRN Reason: ANXIETY Last Admin: 01/10/18 09:26 Dose: 0.5 mg Mesalamine (Pentasa(Nf)) 1,000 mg PO QID [facility]; Protocol Montelukast Sodium (Singulair Tab*) 10 mg PO BEDTIME [facility] Last Admin: 01/10/18 00:45 Dose: 10 mg Multivitamins (Theragran Tab*) 1 tab PO DAILY [facility] Last Admin: 01/10/18 08:01 Dose: 1 tab Nicotine (Nicotine Inhaler*) 10 mg INH Q2H PRN PRN Reason: CRAVING Nicotine (Nicotine Patch 21 Mg/24 Hr*) 1 patch TRANSDERM DAILY [facility] Last Admin: 01/10/18 08:04 Dose: 1 patch Nf:Bronkaid 1 dose PO Q4H PRN PRN Reason: . Nf: Mucinex Dm 1 dose PO Q12H PRN PRN Reason: FOR 10 DAYS Stop: 01/14/18 23:59 Omeprazole (Prilosec Cap*) 20 mg PO BID [facility] Last Admin: 01/10/18 08:01 Dose: 20 mg Ondansetron HCl (Zofran Odt Tab*) 4 mg SL Q8H PRN PRN Reason: NAUSEA/VOMITING Pharmacy Profile Note (Nicotine Patch Removal Note*) 1 note PATCH OFF 2099 [facility] Last Admin: 01/09/18 22:28 Dose: 1 note Quetiapine Fumarate (Seroquel Tab*) 200 mg PO 2100 [facility] Last Admin: 01/10/18 00:45 Dose: 200 mg Triamcinolone Acetonide (Triamcinolone 0.025% Oint *) 1 applic TOPICAL BID [facility] Last Admin: 01/10/18 08:56 Dose: Not Given
[2018-01-10] MEDS ORDERED: MESALAMINE 250 MG PO SCH (17:00)
[2018-01-10] MEDS: MESALAMINE 500 MG PO SCH ×2 (19:19→21:13)
[2018-01-10] MEDS: Ondansetron ODT TAB* 4 MG SL PRN (21:18)
[2018-01-10] MEDS: Nicotine Patch Removal NOTE PATCH OFF SCH (23:27)
[2018-01-11] MEDS: Acetaminophen TAB* 325 MG PO PRN ×4 (04:53→19:25)
[2018-01-11] MEDS: LORazepam TAB(*) 0.5 MG PO PRN ×2 (04:54→11:01)
[2018-01-11] MEDS: Nicotine PATCH 21 MG/24 HR* PATCH TRANSDERM SCH (08:30)
[2018-01-11] MEDS: Triamcinolone 0.025% OINT * 15 GM TUBE TOPICAL SCH ×2 (08:30→21:34)
[2018-01-11] MEDS: Fluticasone NASAL SPRAY 50MCG* 16 gm SPRAY BTL BOTH NARES SCH (08:30)
[2018-01-11] MEDS: BUDESONIDE 3 MG PO SCH (08:33)
[2018-01-11] MEDS: Dicyclomine CAP* 10 MG PO SCH ×4 (08:34→21:28)
[2018-01-11] MEDS: FLUoxetine CAP* 20 MG PO SCH (08:34)
[2018-01-11] MEDS: MESALAMINE 500 MG PO SCH ×4 (08:35→21:29)
[2018-01-11] MEDS: busPIRone TAB* 15 MG PO SCH ×3 (08:35→21:29)
[2018-01-11] MEDS: Omeprazole CAP* 20 MG PO SCH ×2 (08:35→21:30)
[2018-01-11] MEDS: Vitamin THERAPEUTIC TAB PO SCH (08:35)
[2018-01-11] MEDS: Ondansetron ODT TAB* 4 MG SL PRN (08:41)
[2018-01-11] MEDS: Albuterol HFA INHALER* 8 gm MDI INH PRN (11:02)
--- NOTE | 2018-01-11 12:28 | PN ---
Subjective Date of Service: 01/11/18 Interval History: Patient feels as if there might have been some slight improvement in pain and diarrhea since yesterday. Patient still has significant abdominal pain and worsening pain today that he relates to gas. Patient denies F/C, Dizziness, CP, SOB, N/V, or other pain. Patient states that he had a CT scan 2 years ago revealing fecal impaction and that no one mentioned an enlarged liver at that time. Family History: Unchanged from Admission Social History: Unchanged from Admission Past Medical History: Unchanged from Admission Objective Active Medications: Acetaminophen (Tylenol Tab*) 650 mg PO Q4H PRN PRN Reason: PAIN or TEMP > 101 F Last Admin: 01/11/18 08:42 Dose: 650 mg Al Hydrox/Mg Hydrox/Simethicone (Maalox Plus*) 30 ml PO Q4H PRN PRN Reason: INDIGESTION Albuterol (Ventolin Hfa Inhaler*) 2 puff INH Q4H PRN PRN Reason: . Last Admin: 01/11/18 11:02 Dose: 2 puff Budesonide (Budesonide Cap(Nf)) 9 mg PO DAILY [facility] Last Admin: 01/11/18 08:33 Dose: 9 mg Buspirone HCl (Buspar Tab *) 15 mg PO TID [facility] Last Admin: 01/11/18 08:35 Dose: 15 mg Device (Nicotine Mouth Piece*) 1 each INH .USE WITH NICOTROL PRN PRN Reason: CRAVING Dicyclomine HCl (Bentyl Cap*) 40 mg PO ACHS [facility] Last Admin: 01/11/18 11:05 Dose: 40 mg Fluoxetine HCl (Prozac Cap*) 40 mg PO DAILY [facility] Last Admin: 01/11/18 08:34 Dose: 40 mg Fluticasone Propionate (Flonase Nasal [place] 50mcg*) 1 spray BOTH NARES DAILY [facility] Last Admin: 01/11/18 08:30 Dose: 1 spray Hydroxyzine HCl (Atarax Tab*) 50 mg PO Q6H PRN PRN Reason: ANXIETY Last Admin: 01/10/18 11:55 Dose: 50 mg Lorazepam (Ativan Tab(*)) 0.5 mg PO TID PRN PRN Reason: ANXIETY Last Admin: 01/11/18 11:01 Dose: 0.5 mg Mesalamine (Pentasa(Nf)) 1,000 mg PO QID [facility]; Protocol Last Admin: 01/11/18 08:35 Dose: 1,000 mg Montelukast Sodium (Singulair Tab*) 10 mg PO BEDTIME [facility] Last Admin: 01/10/18 21:14 Dose: 10 mg Multivitamins (Theragran Tab*) 1 tab PO DAILY [facility] Last Admin: 01/11/18 08:35 Dose: 1 tab Nicotine (Nicotine Inhaler*) 10 mg INH Q2H PRN PRN Reason: CRAVING Nicotine (Nicotine Patch 21 Mg/24 Hr*) 1 patch TRANSDERM DAILY [facility] Last Admin: 01/11/18 08:30 Dose: 1 patch Nf:Bronkaid 1 dose PO Q4H PRN PRN Reason: . Nf: Mucinex Dm 1 dose PO Q12H PRN PRN Reason: FOR 10 DAYS Stop: 01/14/18 23:59 Omeprazole (Prilosec Cap*) 20 mg PO BID [facility] Last Admin: 01/11/18 08:35 Dose: 20 mg Ondansetron HCl (Zofran Odt Tab*) 4 mg SL Q8H PRN PRN Reason: NAUSEA/VOMITING Last Admin: 01/11/18 08:41 Dose: 4 mg Pharmacy Profile Note (Nicotine Patch Removal Note*) 1 note PATCH OFF 2099 [facility] Last Admin: 01/10/18 23:27 Dose: Not Given Quetiapine Fumarate (Seroquel Tab*) 200 mg PO 2100 [facility] Last Admin: 01/10/18 21:14 Dose: 200 mg Triamcinolone Acetonide (Triamcinolone 0.025% Oint *) 1 applic TOPICAL BID [facility] Last Admin: 01/11/18 08:30 Dose: 1 applic Vital Signs - 8 hr 01/11/18 01/11/18 01/11/18 04:54 07:39 08:34 Temperature 98.7 F Pulse Rate 92 Respiratory 16 16 18 Rate Blood Pressure 102/85 (mmHg) O2 Sat by Pulse 100 Oximetry 01/11/18 01/11/18 01/11/18 08:45 11:01 11:05 Temperature Pulse Rate Respiratory 18 18 18 Rate Blood Pressure (mmHg) O2 Sat by Pulse Oximetry Oxygen Devices in Use Now: None Appearance: Patient is a 37yo male who appears stated age and is sitting in the bed in NAD. Eyes: No Scleral Icterus, PERRLA Ears/Nose/Mouth/Throat: NL Teeth, Lips, Gums, Clear Oropharnyx, Mucous Membranes Moist Neck: NL Appearance and Movements; NL JVP, Trachea Midline Respiratory: Symmetrical Chest Expansion and Respiratory Effort, Clear to Auscultation Cardiovascular: NL Sounds; No Murmurs; No JVD, RRR, No Edema Abdominal: No Hepatosplenomegaly, - - Tender diffusely Lymphatic: No Cervical Adenopathy Extremities: No Edema, No Clubbing, Cyanosis Skin: No Rash or Ulcers, No Nodules or Sclerosis Neurological: Alert and Oriented x 3, NL Sensation, NL Muscle Strength and Tone , - - CN II-XII intact. Result Diagrams: 01/10/18 07:37 01/10/18 07:42 Microbiology and Other Data: Microbiology 01/06/18 14:27 Urine Culture - Final Urine No Growth (<1,000 CFU/mL) Assess/Plan/Problems-Billing Assessment: Patient is a 37yo male with a PMH for UC, IBS, PTSD and Depression/anxiety who is admitted for inpatient psychiatric treatment and is having a UC flare. - Patient Problems (1) Ulcerative colitis Current Visit: Yes Status: Acute Code(s): K51.90 - ULCERATIVE COLITIS, UNSPECIFIED, WITHOUT COMPLICATIONS SNOMED Code(s): 98125002 Comment: - Moderate UC Flare. - Patient has a history of "Fecal retention" which there was no sign of on CT abdomen - Will attempt to get records from outpatient [facility]. - H/H stable. Increased Mesalamine to treatment dose from maintenance dose and continue with Budesonide. Consider enema treatment if no improvement after several days. - Tylenol and Bentyl for pain control, avoid opiates if possible. Bentyl dose increased. (2) IBS (irritable bowel syndrome) Current Visit: Yes Status: Acute Comment: - Contributing to abdominal pain and cramping - Worse with psychiatric concerns. - Continue Bentyl. - Simethicone for subjective "gas" pain (3) PTSD (post-traumatic stress disorder) Current Visit: Yes Status: Acute Code(s): F43.10 - POST-TRAUMATIC STRESS DISORDER, UNSPECIFIED SNOMED Code(s): 41195757 Comment: - Management per psychiatry (4) Full code status Current Visit: Yes Status: Acute Code(s): Z78.9 - OTHER SPECIFIED HEALTH STATUS SNOMED Code(s): 851956243 Status and Disposition: Inpatient Psych
--- NOTE | 2018-01-11 12:46 | PN ---
Subjective - Subjective Date of Service: 01/11/18 Service Type: [id number] Hosp care 15 min low complexity Subjective: Patient was seen by self, discussed with treatment team, case also discussed with Hospitalist, chart was reviewed. Patient has been compliant with his medications. Patient reports continued gradual improvement but still have late insomnia and takes Hydroxyzine at that time. But patient do appreciate his quality of sleep improving and his mood and depression has been improving gradually. Patient thinking has been displaying less of negativity. Patient is being followed up by hospitalist team and his mesalamine was increased. Patient continues to work on his distress and negative cognitive thinking with coping strategies and attending groups. Patient reports that yesterday her 1:1 therapy was very helpful. Patient reports that yesterday he spoke to his partner and worked on resolving conflicts and feels better about that as well. Patient eating has been fair. Patient has been cooperative with staff. Patient behavior has been in control. Patient has been reporting no suicidal or homicidal ideation. No psychotic symptoms of delusions or hallucinations. Objective - Appearance Appearance: Healthy Appearing, Thin Framed Dysmorphic Features: No Hygiene: Normal Grooming: Fairly Well Kept - Behavior Psychomotor Activities: Normal - Attitude and Relatedness Attitude and Relatedness: Cooperative Eye Contact: Fair - Speech Quality: Unpressured Latencies: Normal Quantity: Appropriate - Mood Patient's Decription of Mood: "Anxious" - Affect Observed Affect: Fair Affect Consistent with: Dysphoria - less - Thought Process Patient's Thought Process: Coherent Thought Content: No Passive Wish, No Suicidal Planning, No Homicidal Ideation, No Paranoid Ideation - Sensorium Experiencing Hallucinations: No, Sensorium is Clear Type of Hallucinations: Visual: No, Auditory: No, Command: No - Level of Consciousness Level of Consciousness: Alert Orientation: Yes Intact, Yes Orientated to Time, Yes Orientated to Place, Yes Orientated to Person - Impulse Control Impulse Control: Intact - Insight and Judgement Insight and Judgement: Fair - Group Participation Particating in Group Activities: Yes - Medication Management Medication Management Adherence: Yes Assessment - Assessment Merits Inpatient Hospitalization: For Immediate Safety, For Stabilization, For Discharge Planning Inpatient DSM-V Dx: F33.9 Clinical Impression: Patient with history of IBS, Ulcerative Colitis, PTSD, Anxiety and Depression? ADHD-can be attention deficit secondary to primary diagnosis. Patient currently admitted due to worsening of depression, anxiety and suicidal thoughts with a plan. Patient has also struggled with psychosocial issues including financial, conflicts with partner and recent changes in medications. Patient is a danger to self and if discharged hence will be stabilized on inpatient unit with medication adjustments and therapy. MHU: Problem List - Patient Problems (1) Major depression Current Visit: Yes Status: Acute Code(s): F32.9 - MAJOR DEPRESSIVE DISORDER , SINGLE EPISODE, UNSPECIFIED SNOMED Code(s): 464115809 (2) Anxiety disorder, unspecified Current Visit: Yes Status: Acute Code(s): F41.9 - ANXIETY DISORDER, UNSPECIFIED SNOMED Code(s): 245932752 (3) PTSD (post-traumatic stress disorder) Current Visit: Yes Status: Acute Code(s): F43.10 - POST-TRAUMATIC STRESS DISORDER, UNSPECIFIED SNOMED Code(s): 96983709 Comment: - Management per psychiatry Plan - Plan Treatment Plan: Name: ANN CHAUHAN Birthdate: 1980 [id number] - Patient continues to be hospitalized due to recent suicidal thoughts with plan , mood instability, anxiety and impulsivity. - Patient's medications were adjusted after informed consent with continuation of Buspar and Prozac. Patient Seroquel was increased to 250 mg at Bedtime to augment antidepressant and anti anxiety effect and aide sleep. Ativan as prn for anxiety. Continue with other medical medications. -Will continue with recommendations from Hospitalist for medical or GI complaints. - Patient will be monitored for improvement and side effects. Risk and benefits were discussed. - Patient was encouraged to continue his participation in the milieu, group and individual therapy. Medications: Current Medications Acetaminophen (Tylenol Tab*) 650 mg PO Q4H PRN PRN Reason: PAIN or TEMP > 101 F Last Admin: 01/11/18 08:42 Dose: 650 mg Al Hydrox/Mg Hydrox/Simethicone (Maalox Plus*) 30 ml PO Q4H PRN PRN Reason: INDIGESTION Albuterol (Ventolin Hfa Inhaler*) 2 puff INH Q4H PRN PRN Reason: . Last Admin: 01/11/18 11:02 Dose: 2 puff Budesonide (Budesonide Cap(Nf)) 9 mg PO DAILY [facility] Last Admin: 01/11/18 08:33 Dose: 9 mg Buspirone HCl (Buspar Tab *) 15 mg PO TID [facility] Last Admin: 01/11/18 08:35 Dose: 15 mg Device (Nicotine Mouth Piece*) 1 each INH .USE WITH NICOTROL PRN PRN Reason: CRAVING Dicyclomine HCl (Bentyl Cap*) 40 mg PO ACHS [facility] Last Admin: 01/11/18 11:05 Dose: 40 mg Fluoxetine HCl (Prozac Cap*) 40 mg PO DAILY [facility] Last Admin: 01/11/18 08:34 Dose: 40 mg Fluticasone Propionate (Flonase Nasal [place] 50mcg*) 1 spray BOTH NARES DAILY [facility] Last Admin: 01/11/18 08:30 Dose: 1 spray Hydroxyzine HCl (Atarax Tab*) 50 mg PO Q6H PRN PRN Reason: ANXIETY Last Admin: 01/10/18 11:55 Dose: 50 mg Lorazepam (Ativan Tab(*)) 0.5 mg PO TID PRN PRN Reason: ANXIETY Last Admin: 01/11/18 11:01 Dose: 0.5 mg Mesalamine (Pentasa(Nf)) 1,000 mg PO QID [facility]; Protocol Last Admin: 01/11/18 08:35 Dose: 1,000 mg Montelukast Sodium (Singulair Tab*) 10 mg PO BEDTIME [facility] Last Admin: 01/10/18 21:14 Dose: 10 mg Multivitamins (Theragran Tab*) 1 tab PO DAILY [facility] Last Admin: 01/11/18 08:35 Dose: 1 tab Nicotine (Nicotine Inhaler*) 10 mg INH Q2H PRN PRN Reason: CRAVING Nicotine (Nicotine Patch 21 Mg/24 Hr*) 1 patch TRANSDERM DAILY [facility] Last Admin: 01/11/18 08:30 Dose: 1 patch Nf:Bronkaid 1 dose PO Q4H PRN PRN Reason: . Nf: Mucinex Dm 1 dose PO Q12H PRN PRN Reason: FOR 10 DAYS Stop: 01/14/18 23:59 Omeprazole (Prilosec Cap*) 20 mg PO BID [facility] Last Admin: 01/11/18 08:35 Dose: 20 mg Ondansetron HCl (Zofran Odt Tab*) 4 mg SL Q8H PRN PRN Reason: NAUSEA/VOMITING Last Admin: 01/11/18 08:41 Dose: 4 mg Pharmacy Profile Note (Nicotine Patch Removal Note*) 1 note PATCH OFF 2099 [facility] Last Admin: 01/10/18 23:27 Dose: Not Given Quetiapine Fumarate (Seroquel Tab*) 250 mg PO 2100 [facility] Simethicone (Mylicon Tab*) 80 mg PO AC [facility] Triamcinolone Acetonide (Triamcinolone 0.025% Oint *) 1 applic TOPICAL BID [facility] Last Admin: 01/11/18 08:30 Dose: 1 applic
[2018-01-11] MEDS: Simethicone TAB* 80 MG TAB.CHEW PO SCH (16:43)
[2018-01-11] MEDS: hydrOXYzine HCL TAB* 50 MG PO PRN (19:27)
[2018-01-11] MEDS: Montelukast Sodium TAB* 10 MG PO SCH (21:29)
[2018-01-11] MEDS: QUEtiapine TAB* 100 MG PO SCH (21:30)
[2018-01-11] MEDS: Nicotine Patch Removal NOTE PATCH OFF SCH (22:18)
[2018-01-12] MEDS: hydrOXYzine HCL TAB* 50 MG PO PRN ×2 (06:25→16:50)
[2018-01-12 07:41] LABS: ABS Basophils 0 10^3/ul (0-0.2); ABS Eosinophils 0.2 10^3/ul (0-0.6); ABS Lymphocytes 3.1 10^3/ul (1.0-4.8); ABS Monocytes 0.8 10^3/ul (0-0.8); ABS Neutrophils 2.4 10^3/ul (1.5-7.7); ABS Nucleated RBC 0 10^3/ul; Hematocrit 40 % (42-52); Hemoglobin 13.9 g/dl (14.0-18.0); Lymphocyte % 47.8 % (25-47); Mean Corpuscular HGB Conc 35 g/dl (31-36); Mean Corpuscular Hemoglobin 30 pg (27-31); Mean Corpuscular Volume 86 fL (80-94); Mean Platelet Volume 7.7 fL (7.4-10.4); Nucleated Red Blood Cells % 0.2; Platelet Count 208 10^3/ul (150-450); Red Cell Distribution Width 14 % (10.5-15); White Blood Count 6.4 10^3/ul (3.5-10.8)
[2018-01-12 07:50] LABS: EGFR Non-African American 94.8 (>60)
[2018-01-12] MEDS: Dicyclomine CAP* 10 MG PO SCH ×4 (08:37→20:10)
[2018-01-12] MEDS: busPIRone TAB* 15 MG PO SCH ×3 (08:38→20:11)
[2018-01-12] MEDS: BUDESONIDE 3 MG PO SCH (08:38)
[2018-01-12] MEDS: Simethicone TAB* 80 MG TAB.CHEW PO SCH ×3 (08:38→16:49)
[2018-01-12] MEDS: MESALAMINE 500 MG PO SCH ×4 (08:39→20:10)
[2018-01-12] MEDS: FLUoxetine CAP* 20 MG PO SCH (08:39)
[2018-01-12] MEDS: Fluticasone NASAL SPRAY 50MCG* 16 gm SPRAY BTL BOTH NARES SCH (08:39)
[2018-01-12] MEDS: Omeprazole CAP* 20 MG PO SCH ×2 (08:40→20:10)
[2018-01-12] MEDS: Vitamin THERAPEUTIC TAB PO SCH (08:40)
[2018-01-12] MEDS: Nicotine PATCH 21 MG/24 HR* PATCH TRANSDERM SCH (08:40)
[2018-01-12] MEDS: LORazepam TAB(*) 0.5 MG PO PRN ×3 (08:41→20:11)
[2018-01-12] MEDS: Ondansetron ODT TAB* 4 MG SL PRN ×2 (09:57→21:35)
[2018-01-12] MEDS: Triamcinolone 0.025% OINT * 15 GM TUBE TOPICAL SCH ×2 (10:39→20:11)
--- NOTE | 2018-01-12 11:45 | PN ---
Subjective Date of Service: 01/12/18 Interval History: Patient is feeling better today. Patient rates abdominal pain as a 5-6/10 down from a 7-8/10. Patient states that his appetite is improving and that he has needed zofran less. Patient denies F/C, N/V, CP, SOB. Patient states his BMs are decreasing in frequency and he is having less blood in them. Family History: Unchanged from Admission Social History: Unchanged from Admission Past Medical History: Unchanged from Admission Objective Active Medications: Acetaminophen (Tylenol Tab*) 650 mg PO Q4H PRN PRN Reason: PAIN or TEMP > 101 F Last Admin: 01/11/18 19:25 Dose: 650 mg Al Hydrox/Mg Hydrox/Simethicone (Maalox Plus*) 30 ml PO Q4H PRN PRN Reason: INDIGESTION Albuterol (Ventolin Hfa Inhaler*) 2 puff INH Q4H PRN PRN Reason: . Last Admin: 01/11/18 11:02 Dose: 2 puff Budesonide (Budesonide Cap(Nf)) 9 mg PO DAILY [facility] Last Admin: 01/12/18 08:38 Dose: 9 mg Buspirone HCl (Buspar Tab *) 15 mg PO TID [facility] Last Admin: 01/12/18 08:38 Dose: 15 mg Device (Nicotine Mouth Piece*) 1 each INH .USE WITH NICOTROL PRN PRN Reason: CRAVING Dicyclomine HCl (Bentyl Cap*) 40 mg PO ACHS [facility] Last Admin: 01/12/18 08:37 Dose: 40 mg Fluoxetine HCl (Prozac Cap*) 40 mg PO DAILY [facility] Last Admin: 01/12/18 08:39 Dose: 40 mg Fluticasone Propionate (Flonase Nasal [place] 50mcg*) 1 spray BOTH NARES DAILY [facility] Last Admin: 01/12/18 08:39 Dose: 1 spray Hydroxyzine HCl (Atarax Tab*) 50 mg PO Q6H PRN PRN Reason: ANXIETY Last Admin: 01/12/18 06:25 Dose: 50 mg Lorazepam (Ativan Tab(*)) 0.5 mg PO TID PRN PRN Reason: ANXIETY Last Admin: 01/12/18 08:41 Dose: 0.5 mg Mesalamine (Pentasa(Nf)) 1,000 mg PO QID [facility]; Protocol Last Admin: 01/12/18 08:39 Dose: 1,000 mg Montelukast Sodium (Singulair Tab*) 10 mg PO BEDTIME [facility] Last Admin: 01/11/18 21:29 Dose: 10 mg Multivitamins (Theragran Tab*) 1 tab PO DAILY [facility] Last Admin: 01/12/18 08:40 Dose: 1 tab Nicotine (Nicotine Inhaler*) 10 mg INH Q2H PRN PRN Reason: CRAVING Nicotine (Nicotine Patch 21 Mg/24 Hr*) 1 patch TRANSDERM DAILY [facility] Last Admin: 01/12/18 08:40 Dose: 1 patch Nf:Bronkaid 1 dose PO Q4H PRN PRN Reason: . Nf: Mucinex Dm 1 dose PO Q12H PRN PRN Reason: FOR 10 DAYS Stop: 01/14/18 23:59 Omeprazole (Prilosec Cap*) 20 mg PO BID [facility] Last Admin: 01/12/18 08:40 Dose: 20 mg Ondansetron HCl (Zofran Odt Tab*) 4 mg SL Q8H PRN PRN Reason: NAUSEA/VOMITING Last Admin: 01/12/18 09:57 Dose: 4 mg Pharmacy Profile Note (Nicotine Patch Removal Note*) 1 note PATCH OFF 2099 [facility] Last Admin: 01/11/18 22:18 Dose: 1 note Quetiapine Fumarate (Seroquel Tab*) 250 mg PO 2100 [facility] Last Admin: 01/11/18 21:30 Dose: 250 mg Simethicone (Mylicon Tab*) 80 mg PO AC [facility] Last Admin: 01/12/18 08:38 Dose: 80 mg Triamcinolone Acetonide (Triamcinolone 0.025% Oint *) 1 applic TOPICAL BID [facility] Last Admin: 01/12/18 10:39 Dose: Not Given Vital Signs - 8 hr 01/12/18 01/12/18 01/12/18 08:01 08:37 08:41 Temperature 97.5 F Pulse Rate 94 Respiratory 16 16 16 Rate Blood Pressure 121/74 (mmHg) O2 Sat by Pulse 98 Oximetry 01/12/18 10:05 Temperature Pulse Rate Respiratory 16 Rate Blood Pressure (mmHg) O2 Sat by Pulse Oximetry Oxygen Devices in Use Now: None Appearance: Patient is a 37yo male who appears stated age and is sitting in the bed in NAD. Eyes: No Scleral Icterus, PERRLA Ears/Nose/Mouth/Throat: NL Teeth, Lips, Gums, Clear Oropharnyx, Mucous Membranes Moist Neck: NL Appearance and Movements; NL JVP, Trachea Midline Respiratory: Symmetrical Chest Expansion and Respiratory Effort, Clear to Auscultation Cardiovascular: NL Sounds; No Murmurs; No JVD, RRR, No Edema Abdominal: NL Sounds; No Tenderness; No Distention, No Hepatosplenomegaly Neurological: Alert and Oriented x 3 Result Diagrams: 01/12/18 07:06 01/12/18 07:06 Microbiology and Other Data: Microbiology 01/06/18 14:27 Urine Culture - Final Urine No Growth (<1,000 CFU/mL) Assess/Plan/Problems-Billing Assessment: Patient is a 37yo male with a PMH for UC, IBS, PTSD and Depression/anxiety who is admitted for inpatient psychiatric treatment and is having a UC flare. - Patient Problems (1) Ulcerative colitis Current Visit: Yes Status: Acute Code(s): K51.90 - ULCERATIVE COLITIS, UNSPECIFIED, WITHOUT COMPLICATIONS SNOMED Code(s): 49742849 Comment: - Moderate UC Flare. - Patient has a history of "Fecal retention" which there was no sign of on CT abdomen - Will attempt to get records from outpatient Tutor. - H/H stable. Increased Mesalamine to treatment dose from maintenance dose and continue with Budesonide. - Significant improvement today in abdominal pain and diarrhea. - Tylenol and Bentyl for pain control, avoid opiates if possible. Bentyl dose increased. (2) IBS (irritable bowel syndrome) Current Visit: Yes Status: Acute Comment: - Contributing to abdominal pain and cramping - Worse with psychiatric concerns. - Continue Bentyl. - Simethicone for subjective "gas" pain (3) PTSD (post-traumatic stress disorder) Current Visit: Yes Status: Acute Code(s): F43.10 - POST-TRAUMATIC STRESS DISORDER, UNSPECIFIED SNOMED Code(s): 43027134 Comment: - Management per psychiatry (4) Full code status Current Visit: Yes Status: Acute Code(s): Z78.9 - OTHER SPECIFIED HEALTH STATUS SNOMED Code(s): 659323509 Status and Disposition: Inpatient Psych, Will Sign Off, Please feel free to call with questions. Thank you very much for this consult.
[2018-01-12] MEDS: Montelukast Sodium TAB* 10 MG PO SCH (20:10)
[2018-01-12] MEDS: QUEtiapine TAB* 100 MG PO SCH (20:11)
[2018-01-12] MEDS: Nicotine Patch Removal NOTE PATCH OFF SCH (20:13)
[2018-01-13] MEDS: hydrOXYzine HCL TAB* 50 MG PO PRN ×2 (04:16→09:39)
[2018-01-13] MEDS: Simethicone TAB* 80 MG TAB.CHEW PO SCH ×3 (08:20→16:09)
[2018-01-13] MEDS: BUDESONIDE 3 MG PO SCH (08:20)
[2018-01-13] MEDS: MESALAMINE 500 MG PO SCH ×4 (08:20→21:04)
[2018-01-13] MEDS: busPIRone TAB* 15 MG PO SCH ×3 (08:20→21:03)
[2018-01-13] MEDS: Vitamin THERAPEUTIC TAB PO SCH (08:20)
[2018-01-13] MEDS: Dicyclomine CAP* 10 MG PO SCH ×4 (08:21→21:03)
[2018-01-13] MEDS: Acetaminophen TAB* 325 MG PO PRN (08:21)
[2018-01-13] MEDS: LORazepam TAB(*) 0.5 MG PO PRN ×3 (08:21→21:08)
[2018-01-13] MEDS: FLUoxetine CAP* 20 MG PO SCH (08:22)
[2018-01-13] MEDS: Triamcinolone 0.025% OINT * 15 GM TUBE TOPICAL SCH (08:22)
[2018-01-13] MEDS: Fluticasone NASAL SPRAY 50MCG* 16 gm SPRAY BTL BOTH NARES SCH (08:22)
[2018-01-13] MEDS: Omeprazole CAP* 20 MG PO SCH ×2 (08:22→21:04)
[2018-01-13] MEDS: Albuterol HFA INHALER* 8 gm MDI INH PRN ×2 (08:22→17:03)
[2018-01-13] MEDS: Nicotine PATCH 21 MG/24 HR* PATCH TRANSDERM SCH (08:23)
[2018-01-13] MEDS: QUEtiapine TAB* 100 MG PO SCH (21:04)
[2018-01-13] MEDS: Montelukast Sodium TAB* 10 MG PO SCH (21:04)
[2018-01-14] MEDS: Nicotine Patch Removal NOTE PATCH OFF SCH (01:33)
[2018-01-14] MEDS: Triamcinolone 0.025% OINT * 15 GM TUBE TOPICAL SCH ×2 (01:33→10:16)
[2018-01-14] MEDS: LORazepam TAB(*) 0.5 MG PO PRN ×2 (04:16→10:12)
[2018-01-14] MEDS: Simethicone TAB* 80 MG TAB.CHEW PO SCH ×2 (07:53→12:00)
[2018-01-14] MEDS: Dicyclomine CAP* 10 MG PO SCH ×2 (07:53→12:00)
[2018-01-14] MEDS: Nicotine PATCH 21 MG/24 HR* PATCH TRANSDERM SCH (10:08)
[2018-01-14] MEDS: Albuterol HFA INHALER* 8 gm MDI INH PRN (10:09)
[2018-01-14] MEDS: Fluticasone NASAL SPRAY 50MCG* 16 gm SPRAY BTL BOTH NARES SCH (10:09)
[2018-01-14] MEDS: FLUoxetine CAP* 20 MG PO SCH (10:10)
[2018-01-14] MEDS: Acetaminophen TAB* 325 MG PO PRN (10:11)
[2018-01-14] MEDS: Vitamin THERAPEUTIC TAB PO SCH (10:12)
[2018-01-14] MEDS: Omeprazole CAP* 20 MG PO SCH (10:12)
[2018-01-14] MEDS: BUDESONIDE 3 MG PO SCH (10:13)
[2018-01-14] MEDS: busPIRone TAB* 15 MG PO SCH ×2 (10:13→13:13)
[2018-01-14] MEDS: MESALAMINE 500 MG PO SCH ×2 (10:15→13:12)
[2018-01-14 11:39] VITALS: BP 122/77
--- NOTE | 2018-01-14 12:09 | PN ---
[facility]: Group Therapy Note - Service Type Service Type: 11077 Group Psychotherapy - Cognitive Behavioral Group Note: Hossein attended programming and participated well, describing sense of gratitude for his experience here, citing improvement in both anxiety and depression. He describes improved physical function as well, and is happy to return home.
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
== END 2018-01-14 14:35 | disposition home or self-care (01) | DRG 751 ==
LOC: ED 14:02 → BSU 18:44 → ED 19:05 → BSU 01-09 15:10
PROVIDERS: ADMIT Psychiatry & Neurology Psychiatry; ATTEND Psychiatry & Neurology Psychiatry
DX: F33.9 Major depressive disorder, recurrent, unspecified (principal); R45.851 Suicidal ideations; K51.90 Ulcerative colitis, unspecified, without complications; F43.10 Post-traumatic stress disorder, unspecified; F41.9 Anxiety disorder, unspecified; F90.9 Attention-deficit hyperactivity disorder, unspecified type; G47.00 Insomnia, unspecified; F17.210 Nicotine dependence, cigarettes, uncomplicated; Z88.2 Allergy status to sulfonamides; Z91.040 Latex allergy status; Z81.8 Family history of other mental and behavioral disorders; Z81.1 Family history of alcohol abuse and dependence
CPT/HCPCS: 36415; 74177; 80053; 80307; 80320; 80329; 81003; 81015; 84443; 85025; 85610; 85652; 86140; 87086; 90853; 94640; 99222; 99231; 99232; 99238; 99284; A9270-GY; G0480; Q9967